=== PATIENT | male | born 1960 | race Caucasian/White ===

== ENCOUNTER 2021-09-16 17:45 | Emergency (ER) | payer BC ==
[~2021-09-16] VITALS: Ht 185.4 cm; Wt 112.0 kg
[2021-09-16 18:15] VITALS: BP 151/87
[2021-09-16] MEDS ORDERED: LIDOCAINE 2%/EPI 1:100,000 20 ML VIAL. IJ ONE (18:45)
[2021-09-16] MEDS ORDERED: AMOX1TAB61 PO (20:17)
--- NOTE | 2021-09-16 20:17 | PHYS DOC ---
Past History Past Medical History: Other (KADEN TSE) Past Surgical History: Other Additional Past Surgical Histo: rotator cuff(right) (KADEN TSE) Smoking: Non-smoker Alcohol Use: Rarely Drug Use: None (KADEN TSE) General Adult EDM: Chief Complaint: LOWER EXT PAIN HPI: HPI: Patient is a 61 year old male who presents with laceration to the anterior aspect of his right lower leg. Patient reports he was loading a heavy bale onto a trailer, using his knee to push it up. He scraped his right toro on a bracket on the trailer. Patient states his tetanus was updated 2 years ago. He rates his pain 11/03. Patient reports moderate bleeding at the time of injury, but it stopped prior to arrival. Patient has no other complaints at this time. (KADEN TSE) Review of Systems: Review of Systems: ROS negative except as mentioned in HPI. (KADEN TSE) Current Medications: Current Meds: Current Medications Medications (Trade) Dose Ordered Sig/Joelle Start Time Stop Time Status Last Admin Dose Admin Lidocaine/ Epinephrine (Xylocaine 2%-Epi 1:100,000) 20 ml 1X ONCE 09/16/21 18:45 09/16/21 18:46 DC 09/16/21 18:45 20 ML (KADEN TSE) Allergies: Allergies: Allergies Coded Allergies Type Severity Reaction Last Updated Verified fentanyl Allergy Unknown Nausea and Vomiting 09/16/21 No oxycodone Allergy Unknown 09/16/21 Yes (KADEN TSE) Physical Exam: PE: Constitutional: Well developed, well nourished, no acute distress, non-toxic appearance. Cardiovascular: Heart rate regular rhythm, no murmur. Lungs & Thorax: Bilateral breath sounds clear to auscultation. Skin: 3 cm linear, vertical laceration to mid toro on RLE. Skin otherwise warm, dry, no erythema, no rash. Extremities: No tenderness, no cyanosis, no clubbing, ROM intact, no edema. (KADEN TSE) Current Patient Data: Vital Signs: Vital Signs Date Time Temp Pulse Resp B/P (MAP) Pulse Ox O2 Delivery O2 Flow Rate FiO2 09/16/21 18:15 98.1 100 18 151/87 (108) 96 (KADEN TSE) Heart Score: C/O Chest Pain: No (KADEN TSE) Course & Med Decision Making: Course & Med Decision Making Pertinent Labs and Imaging studies reviewed. (See chart for details) Patient tetanus up-to-date. No hemostasis required at this time. Patient will be provided with prophylactic antibiotics, as he was outdoors and lacerated his leg on dirty metal. Patient understands return precautions as well as timeline for suture removal. Patient is agreeable to discharge plan. (KADEN TSE) Dragon Disclaimer: Dragon Disclaimer: This electronic medical record was generated, in whole or in part, using a voice recognition dictation system. (KADEN TSE) Laceration Repair Lac Repair Indication: 3 cm laceration to right anterior lower extremity Procedure: The patient was placed in the appropriate position and anesthesia around the laceration was 4 milliliters 2% lidocaine with epinephrine. The area was then irrigated with normal saline and cleansed with chlorhexidine swab. The laceration was closed with 3 vertical mattress sutures using 4-0 nylon. The wound area was then dressed with adhesive bandage. Total repaired wound length: 3 cm. Other Items: The patient tolerated the procedure well. Complications: No complications. (KADEN TSE) Departure Departure: Impression: Primary Impression: Laceration without foreign body, right lower leg, initial encounter Disposition: HOME / SELF CARE / HOMELESS Condition: STABLE Referrals: PCP,NO (PCP) Patient Instructions: Laceration Care, Adult, [id number] Additional Instructions: Please take full course of antibiotics prescribed. Return to the emergency department for signs of infection (redness/warmth surrounding wound, fever, purulent discharge) or for delayed healing (no progressive closure of wound, wound opening, black-colored skin). Sutures may be removed in 10 days. Scripts Amoxicillin/Potassium Clav (AUGMENTIN 875-125 TABLET) 1 Each Tablet 1 TAB PO BID for prophylaxis for 5 Days, #10 TAB 0 Refills Prov: KADEN TSE 09/16/21 Attending Signature Attending Signature I have reviewed the PA/SLINGER SEQUINS's note and plan of care. I was available for consultation as needed during the patient's visit in the emergency department. I agree with the clinical impression, plan, and disposition. (LITTLEPASTORA MEAGHAN PA Sep 16, 2021 20:17 PASTORA LITTLE DO Sep 16, 2021 22:12
== END 2021-09-16 20:23 | disposition home or self-care (01) ==
LOC: ER 17:45
DX: S81.811A Laceration without foreign body, right lower leg, initial encounter (principal); Z88.5 Allergy status to narcotic agent; Z88.8 Allergy status to other drugs, medicaments and biological substances; W26.8XXA Contact with other sharp object(s), not elsewhere classified, initial encounter; Y93.89 Activity, other specified; Y92.89 Other specified places as the place of occurrence of the external cause; Y99.8 Other external cause status
CPT/HCPCS: 12002; 99283